=== PATIENT | male | born 1990 | race Caucasian/White ===

== ENCOUNTER 2022-04-28 22:46 | Emergency (ER) | payer SELFPAY ==
[~2022-04-28] VITALS: Ht 172.7 cm; Wt 70.0 kg
[2022-04-28 23:45] LABS: HEMATOCRIT 39.5 % (42.0-52.0); HEMOGLOBIN 13.1 g/dL (14.0-18.0); MEAN CORPUSCULAR HEMOGLOBIN 28.1 pg (28.0-32.0); MEAN CORPUSCULAR VOLUME 84.5 fL (80.0-94.0); PLATELET 322 x1000/uL (130-400); RED BLOOD CELL COUNT 4.67 mill/uL (4.7-6.1); RED CELL DISTRIBUTION WIDTH 13.8 % (11.6-14.6)
[2022-04-28 23:56] LABS: CHLORIDE 103 mEq/L (98-107)
[2022-04-29] MEDS ORDERED: CEPH500C2 MT (00:28)
[2022-04-29] MEDS ORDERED: CEPHALEXIN 250MG CAPSULE PO ONE (00:30)
[2022-04-29 01:16] VITALS: BP 115/75
== END 2022-04-29 01:16 | disposition home or self-care (01) ==
LOC: ER 22:46
DX: L03.116 Cellulitis of left lower limb (principal); I10 Essential (primary) hypertension
CPT/HCPCS: 36415; 73590; 73610; 80053; 85027; 93971; 99285